=== PATIENT | male | born 2000 | race Caucasian/White ===

== ENCOUNTER 2019-01-02 08:43 | Emergency (ER) | payer BC, OTHER ==
--- NOTE | 2019-01-02 10:11 | RAD ---
PROCEDURE: Right Hand Radiographs. HISTORY: pain COMPARISON: None available. FINDINGS: Rotated AP view. BONES: Deformity at the base of the 5th metacarpal appears chronic. No acute displaced fracture identified. JOINTS: No dislocation. SOFT TISSUES: Mild soft tissue swelling. No evidence of radiopaque foreign body. OTHER FINDINGS: None. IMPRESSION: Suboptimal positioning limits evaluation particularly of the 4th and 5th proximal metacarpals. Deformity of the base of the 5th metacarpal appears chronic. Correlate clinically. Repeat study or cross-sectional imaging suggested for further evaluation if indicated. Mild soft tissue swelling.
--- NOTE | 2019-01-02 10:16 | C.PDOC ---
History Of Present Illness 18 y/o male presents to the ED complaining of pain to his right hand. He states that 1.5 years ago he fractured the right middle finger. Since then, he intermittently has pain when it is cold outside. Patient now complains of having pain at the base of his right middle finger, at the site of prior injury. States he is unsure of whether he twisted it recently, though denies any blunt trauma or fall. Otherwise he denies any paresthesias or hand weakness. Time Seen by Provider: 01/02/19 09:29 Chief Complaint (Nursing): Upper Extremity Problem/Injury History Per: Patient History/Exam Limitations: no limitations Onset/Duration Of Symptoms: Days Current Symptoms Are (Timing): Still Present Past Medical History Reviewed: Historical Data, Nursing Documentation, Vital Signs - Medical History PMH: Fractures (Right hand) Family History: States: Unknown Family Hx - Social History Hx Tobacco Use: No Hx Alcohol Use: Yes Hx Substance Use: No - Immunization History Hx Tetanus Toxoid Vaccination: No Hx Influenza Vaccination: Yes Hx Pneumococcal Vaccination: No Review Of Systems Except As Marked, All Systems Reviewed And Found Negative. Respiratory: Negative for: Shortness of Breath Gastrointestinal: Negative for: Vomiting Musculoskeletal: Positive for: Hand Pain (near right middle digit) Skin: Negative for: Rash, Lesions Neurological: Negative for: Weakness, Numbness Physical Exam - Physical Exam Appears: Non-toxic, No Acute Distress Skin: Warm, Dry, No Rash Head: Atraumatic, Normacephalic Eye(s): bilateral: Normal Inspection Neck: Normal ROM Chest: Symmetrical Respiratory: No Accessory Muscle Use, Other (Normal inspiratory effort) Extremity: Normal ROM (Full ROM of all digits, able to oppose each finger to thumb), Tenderness (Mild tenderness at base of the 3rd digit on right hand), Capillary Refill (< 2 sec), No Deformity, No Swelling Pulses: Left Radial: Normal, Right Radial: Normal Neurological/Psych: Oriented x3, Normal Motor, Normal Sensation Medical Decision Making Medical Decision Making: Impression: Right 3rd digit pain Plan: * Right hand x-ray X-ray taken, and is negative for acute fracture. Patient educated regarding results and course of discharge. Advised to follow up with the clinic. Disposition Counseled Patient/Family Regarding: Studies Performed, Diagnosis, Need For Followup - Disposition Referrals: [facility] [Outside] [facility] [Outside] Disposition: HOME/ ROUTINE Disposition Time: 10:14 Condition: GOOD Additional Instructions: LUNA OLIVER, thank you for letting us take care of you today. Your provider was Sana Roe MD and you were treated for RT HAND PAIN. The emergency medical care you received today was directed at your acute symptoms. If you were prescribed any medication, please fill it and take as directed. It may take several days for your symptoms to resolve. Return to the Emergency Department if your symptoms worsen, do not improve, or if you have any other problems. Please contact your doctor or call one of the physicians/clinics you have been referred to that are listed on the Patient Visit Information form that is included in your discharge packet. Bring any paperwork you were given at discharge with you along with any medications you are taking to your follow up visit. Our treatment cannot replace ongoing medical care by a primary care provider outside of the emergency department. Thank you for allowing the [facility] team to be part of your care today. Instructions: Muscle Strain (DC) Forms: [employer] ([place]), General Discharge Instructions - POA Present On Arrival: None - Clinical Impression Clinical Impression: Muscle strain of finger of right hand - Scribe Statement The provider has reviewed the documentation as recorded by the Michelle Garcia Provider Attestation: All medical record entries made by the Michelle were at my direction and personally dictated by me. I have reviewed the chart and agree that the record accurately reflects my personal performance of the history, physical exam, medical decision making, and the department course for this patient. I have also personally directed, reviewed, and agree with the discharge instructions and disposition.
[2019-01-02 10:32] VITALS: BP 128/79; PULSE 78; RESP 18; TEMP 98.7; O2SAT 97
== END 2019-01-02 10:32 | disposition home or self-care (01) ==
LOC: C.ER 08:43
DX: S66.811A Strain of other specified muscles, fascia and tendons at wrist and hand level, right hand, initial encounter (principal); X58.XXXA Exposure to other specified factors, initial encounter